=== PATIENT | male | born 1960 | race Caucasian/White ===

== ENCOUNTER 2017-06-02 06:19 | Day surgery (SDC) | payer BC ==
[~2017-06-02 06:19] MED LIST: Lactated Ringers 1,000 ML IV SCH
--- NOTE | 2017-06-02 06:35 | PCM.PREANE ---
Preanesthetic Assessment - Anesthesia/Transfusion/Family Hx Anesthesia History: Prior Anesthesia Without Reaction Family History of Anesthesia Reaction: No Transfusion History: No Prior Transfusion(s) Intubation History: Unknown - Review of Systems General: No Symptoms Pulmonary: No Symptoms Cardiovascular: No Symptoms Gastrointestinal: Other (GERD) Neurological: No Symptoms Other: Reports: None - Physical Assessment Height: 1.91 m Weight: 115.212 kg ASA Class: 2 Mental Status: Alert & Oriented x3 Airway Class: Mallampati = 2 Dentition: Reports: Normal Dentition, [place](s) (x1 upper front) Thyro-Mental Finger Breadths: 3 Mouth Opening Finger Breadths: 2 ROM/Head Extension: Full Lungs: Clear to auscultation, Normal respiratory effort Cardiovascular: Regular Rate, Regular Rhythm - Allergies Allergies/Adverse Reactions: Allergies Allergy/AdvReac Type Severity Reaction Status Date / Time No Known Allergies Allergy Verified 05/27/17 08:14 - Blood Blood Available: No - Anesthesia Plan Pre-Op Medication Ordered: None - Acknowledgements Anesthesia Type Planned: MAC Pt an Appropriate Candidate for the Planned Anesthesia: Yes Alternatives and Risks of Anesthesia Discussed w Pt/Guardian: Yes Pt/Guardian Understands and Agrees with Anesthesia Plan: Yes PreAnesthesia Questionnaire Respiratory History: Reports: Asthma (mild) Gastrointestinal History: Reports: Other (See Below) Other Gastrointestinal History: hx gastric ulcer "when I was younger" Genitourinary History: Reports: None Endocrine/Metabolic History: Reports: Obesity/BMI 30+ - Past Surgical History Head Surgeries/Procedures: Reports: None GI Surgical History: Reports: Appendectomy, Hernia, Inguinal (right) Male Surgical History: Reports: Vasectomy - SUBSTANCE USE Smoking Status *Q: Never Smoker Tobacco Use Within Last Twelve Months: Cigars (occasionaly) Days Per Week of Alcohol Use: 7 Number of Drinks Per Day: 2 Total Drinks Per Week: 14 Recreational Drug Use History: No - HOME MEDS Home Medications: Home Meds Mometasone/Formoterol [Dulera 200-5 MCG] 2 puff INH BID PRN 05/27/17 [History] Multivitamin [Multivitamins] 1 tab PO DAILY 05/27/17 [History] - CURRENT (IN HOUSE) MEDS Current Meds: Current Medications Lactated Ringer's (Ringers, Lactated) 1,000 mls @ 125 mls/hr IV ASDIRECTED ONIEL
[2017-06-02] MEDS ORDERED: Midazolam 1 MG/ML 2 ML SDV ONE (07:25)
[2017-06-02] MEDS ORDERED: fentaNYL 100 MCG/2 ML SDV ONE (07:25)
[2017-06-02] MEDS ORDERED: Propofol 200 MG/20 ML SDV ONE ×2 (07:25→08:03)
--- NOTE | 2017-06-02 08:29 | PCM.OPNOTE ---
- General Post-Op/Procedure Note Date of Surgery/Procedure: 06/02/17 Operative Procedure(s): colonoscopy w bx Findings: see dict [id number] Pre Op Diagnosis: scrn colonoscopy Post-Op Diagnosis: colon polyp and diverticulosis Anesthesia Technique: Moderate sedation Primary Surgeon: Raul Quick Complications: None Condition: Good
[2017-06-02] MEDS ORDERED: EPINEPHrine 1 MG/ML SDV ONE (08:39)
[2017-06-02 08:53] VITALS: BP 140/91
--- NOTE | 2017-06-03 06:05 | OR ---
SURGEON: Raul Quick MD DATE OF PROCEDURE: 06/02/2017 PREOPERATIVE DIAGNOSIS: Screening colonoscopy. POSTOPERATIVE DIAGNOSIS: Colon polyp. COMPLICATIONS: None. PROCEDURE PERFORMED: Colonoscopy with biopsy. FINDINGS: 1. The patient is easily sedated with [employer] and Diprivan. The patient is soundly snoring. 2. The patient's bowel prep is average to good, very little liquid stool, no semi-formed stool. 3. The patient's colon rather straight forward. Cecum indicated by ileocecal fold, one-to-one indentation, appendiceal orifice. Light emittance is not observed. Mucosa examined upon scope pulling out and with some occasional irrigation for some liquid stool. The patient has mild diverticulosis on the left colon. No signs or symptoms of diverticulitis. A very small sessile polyp around 3 mm right at the distance of the hepatic flexure 90 cm when the scope pulling out and there was no other etiology. No inflammation, stricture, ulceration, bleeding, inflammation, growth, or AV malformation. The patient does not have internal hemorrhoids, does not have external hemorrhoids. There is a very small skin anal tag right at the 12 o'clock on the anus. We will address that in the followup visit. The patient would benefit from repeat colonoscopy 10 years from today or if clinically indicated otherwise or if the polyp biopsy pathology indicated otherwise. DESCRIPTION OF PROCEDURE: The patient was taken to the endoscopy room. A time out was called, patient identified, and procedure identified. Diprivan was then administrated. Patient went from awake to sleep, hearing doctor talking or door closing is normal. Perineum inspection and digital examination were then performed. A well- lubricated colonoscope was gently inserted through the rectum, advanced past the rectosigmoid junction, the descending colon, splenic flexure, transverse colon, hepatic flexure, ascending colon, arrived to the cecum. Cecum was identified as dictated in the finding. Then the scope was carefully withdrawn while attention was paid to the mucosal surface for any abnormality. Air will be sucked out during the scope withdrawal. At the rectum, retroflexed to examine any rectal diseases, fistula or hemorrhoids. During mucosal examination, a polyp was noted; picture taken and biopsy performed. Patient tolerated procedure well. There were no intraoperative complications, and Dr. Quick was present throughout the whole procedure. ALLEN / RITA /[id number] MTDD
--- NOTE | 2017-06-04 06:08 | OR ---
SURGEON: Raul Quick MD DATE OF PROCEDURE: ADDENDUM: FINDINGS: The patient would benefit from repeat colonoscopy in 3 to 5 years or if clinically indicated otherwise or if the polyp biopsy pathology indicated otherwise, so the repeat colonoscopy should be in 3 to 5 years. ALLEN / RITA /[id number]
== END 2017-06-02 08:50 | disposition home or self-care (01) ==
LOC: MW.SDS 06:19
PROVIDERS: ATTEND Surgery
DX: Z12.11 Encounter for screening for malignant neoplasm of colon (principal); K64.4 Residual hemorrhoidal skin tags; J45.909 Unspecified asthma, uncomplicated; Z79.899 Other long term (current) drug therapy; Z90.49 Acquired absence of other specified parts of digestive tract; Z98.890 Other specified postprocedural states; Z98.52 Vasectomy status; F17.210 Nicotine dependence, cigarettes, uncomplicated; Z72.0 Tobacco use
CPT/HCPCS: 45380; J0171; J2250; J3010; J7120; 88305; J2704